=== PATIENT | female | born 1945 | race Caucasian/White ===

== ENCOUNTER 2019-08-10 16:09 | Emergency (ER) | payer MEDICARE ==
[~2019-08-10] VITALS: Ht 167.6 cm; Wt 61.2 kg
[2019-08-10 16:58] LABS: BASO % 0.3 % (0.0-1.0); EOS % 0.4 % (1.0-4.0); HEMATOCRIT 42.3 % (37.0-47.0); HEMOGLOBIN 14.3 g/dl (12.0-16.0); LYMPH # 0.6 10*3/uL (1.3-4.4); MEAN CELL VOLUME 97.5 fl (81.0-99.0); MEAN CORPUSCULAR HGB 32.9 pg (27.0-31.0); MEAN CORPUSCULAR HGB CONC 33.8 g/dl (33.0-37.0); MEAN PLATELET VOLUME 10.4 fl (9.6-12.3); MONO # 0.8 10*3/uL (0.1-1.0); MONO % 8.1 % (3.0-9.0); NEUT # 8.3 10*3/uL (2.3-7.9); NEUT % 84.9 % (47.0-73.0); PLATELET COUNT AUTOMATED 293 10*3/uL (130-400); RED BLOOD COUNT 4.34 10*6/uL (4.10-5.10); RED CELL DISTRI WIDTH 11.8 % (0-14.5); WHITE BLOOD COUNT 9.8 10*3/uL (4.8-10.8)
[2019-08-10 17:13] LABS: ALBUMIN 3.3 gm/dl (3.1-4.5); ALKALINE PHOSPHATASE 89 U/L (45-117); BUN 13 mg/dl (7-24); CHLORIDE 106 mmol/L (98-107); CREATININE 0.85 mg/dL (0.55-1.02); POTASSIUM 4.1 mmol/L (3.5-5.1); SGOT/AST 19 IU/L (3-35); SGPT/ALT 27 U/L (12-78); SODIUM 140 mmol/L (136-145); TOTAL PROTEIN 7.7 gm/dL (6.4-8.2)
== END 2019-08-10 18:44 | disposition home or self-care (01) ==
LOC: ED 16:09
PROVIDERS: Physician Assistant
DX: L25.1 Unspecified contact dermatitis due to drugs in contact with skin (principal); T50.995A Adverse effect of other drugs, medicaments and biological substances, initial encounter; Y92.89 Other specified places as the place of occurrence of the external cause

== ENCOUNTER → 2024-10-27 | Day surgery (SDC) | payer OTHER ==
[~2024-10-27] VITALS: Ht 167.6 cm; Wt 63.5 kg
[~2024-10-27] MED LIST: AMLODIPINE BESYL5 MG PO; Balanced Salt Solution 500 ML OPH SCH; Cefuroxime Sodium 5 MG in BALANCED SALT IRRIG SOLN NO.2 0.5 ML,SYRINGE, DISPOSABLE, 10 ... IO SCH; ESTRACE 0.01%42.5 GM T; FOSAMAX70 M1 PO; KRILL OIL500 MG PO; Midazolam Hydrochloride 2 MG/2 ML VIAL IV ONE; OFLOXACIN 0.3% 5 ML BOTTLE ONE; OFLOXACIN 0.3% 5 ML BOTTLE OPH SCH; PHENYLEPHRINE/KETOROLAC 4 ML in Balanced Salt Solution 500 ML OPH SCH; POVIDONE IODINE 5% OPHTHALMIC 30 ML BOTTLE OPH SCH; Phenylephrine Hydrochloride 2 ML BOT OPH ONE; Phenylephrine Hydrochloride 2 ML BOT OPH SCH; Proparacaine Hydrochloride 15 ML BOT OPH ONE; Proparacaine Hydrochloride 15 ML BOT OPH SCH; SODIUM CHLORIDE 0.9% 1,000 ML IV SCH; TROPICAMIDE 3 ML BOT OPH ONE; TROPICAMIDE 3 ML BOT OPH SCH; Tetracaine Hydrochloride 0.5% 4 ML BOT OPH ONE; Tetracaine Hydrochloride 0.5% 4 ML BOT OPH SCH; prednisoLONE acetate 1% OPHTHALMIC 5 ML BOT OPH ONE; prednisoLONE acetate 1% OPHTHALMIC 5 ML BOT OPH SCH
[2024-10-27 09:35] VITALS: BP 139/79
[2024-10-27 10:52] VITALS: BP 133/83
[2024-10-27 11:07] VITALS: BP 138/79
[2024-10-27 11:20] VITALS: BP 138/78
== END | disposition home or self-care (01) ==
LOC: SDC 10-22 13:15
PROVIDERS: ATTEND Ophthalmology
DX: H25.811 Combined forms of age-related cataract, right eye (principal); Z87.891 Personal history of nicotine dependence; Z98.890 Other specified postprocedural states; Z79.899 Other long term (current) drug therapy; Z91.040 Latex allergy status; Z91.018 Allergy to other foods; Z91.041 Radiographic dye allergy status; Z88.8 Allergy status to other drugs, medicaments and biological substances

== ENCOUNTER → 2024-12-01 | Day surgery (SDC) | payer OTHER ==
[~2024-12-01] VITALS: Ht 167.6 cm; Wt 63.5 kg
[~2024-12-01] MED LIST changes: +POVIDONE IODINE 5% OPHTHALMIC 30 ML BOTTLE OPH ONE; +prednisoLONE acetate 1% OPHTHALMIC 5 ML BOT ONE; -prednisoLONE acetate 1% OPHTHALMIC 5 ML BOT OPH ONE
[2024-12-01 09:00] VITALS: BP 148/71
[2024-12-01 09:38] VITALS: BP 138/88
[2024-12-01 09:53] VITALS: BP 121/87
[2024-12-01 10:07] VITALS: BP 129/73
== END | disposition home or self-care (01) ==
LOC: SDC 11-02 11:30
PROVIDERS: ATTEND Ophthalmology
DX: H25.812 Combined forms of age-related cataract, left eye (principal); I10 Essential (primary) hypertension; Z87.891 Personal history of nicotine dependence